=== PATIENT | female | born 1980 | race American Indian/Alaskan Native ===

== ENCOUNTER 2017-03-24 12:25 | Emergency (ER) | payer OTHER ==
[2017-03-24 13:32] LABS: Hematocrit 41.6 % (30.3-42.9); Hemoglobin 13.7 gm/dl (10.1-14.3); Mean Corpuscular Hemoglobin 32 pg (28-32); Mean Corpuscular Volume 96 fl (79-97); Red Blood Count 4.34 M/mm3 (3.65-5.03); White Blood Count 7.4 K/mm3 (4.5-11.0)
[2017-03-24 13:33] LABS: Basophils % (Auto) 0.6 % (0.0-1.8); Eosinophils % (Auto) 0.6 % (0.0-4.3); Mean Corpuscular HGB Conc 33 % (30-34); Platelet Count 257 K/mm3 (140-440); Red Cell Distribution Width 13.2 % (13.2-15.2)
--- NOTE | 2017-03-24 16:55 | Emergency Department Report ---
HPI - General Chief Complaint: Vaginal Bleeding Time Seen by Provider: 03/24/17 16:14 - HPI HPI: This is a 36-year-old -[place] female presents to the emergency department with a complaint of vaginal bleeding going on since January 31. She saw her [employer] TECHNICIAN shortly after that and was started on Provera. However she says that the bleeding is worsened since taking that medication. She did have an ultrasound done at some point that showed an ovarian cyst. She otherwise denies any medical history. She was advised to come to the emergency department if the bleeding becomes heavier, and she is using about 4-5 pads per hour now, so she came in to be seen. She has some mild lower abdominal/pelvic discomfort with it. She denies any dysuria, fever, nausea, vomiting, vaginal discharge. Separately from this, she complains of some mucus within the chest causes her to cough and she always expectorates. She also has a slight rash on the chest that she says came about the same time as the chest congestion. She is taking some ibuprofen for her discomfort without much relief. No recent travel or sick contacts at home. ED Past Medical Hx - Past Medical History Previous Medical History?: No - Surgical History Past Surgical History?: Yes Additional Surgical History: Tonsilectomy - Social History Smoking Status: Never Smoker Substance Use Type: None - Medications Home Medications: Home Medications Medication Instructions Recorded Confirmed Last Taken Type HYDROcodone/APAP 5-325 [[place] 1 each PO Q6HR PRN #12 tablet 03/24/17 Unknown Rx 5/325] ED Review of Systems ROS: Stated complaint: CONTINUAL BLEEDING/ABD/CHEST COLD Other details as noted in HPI Comment: All other systems reviewed and negative Constitutional: denies: chills, fever Eyes: denies: eye pain, eye discharge, vision change ENT: denies: ear pain, throat pain Respiratory: cough. denies: shortness of breath Cardiovascular: denies: chest pain, palpitations Gastrointestinal: abdominal pain. denies: nausea, vomiting Genitourinary: other (vaginal bleeding). denies: urgency, dysuria, discharge Musculoskeletal: denies: back pain, joint swelling, arthralgia Skin: rash. denies: change in hair/nails Neurological: denies: headache, weakness, paresthesias Physical Exam - Physical Exam Vital Signs: Vital Signs 03/24/17 12:47 Temperature 97.7 F Pulse Rate 82 Respiratory 16 Rate Blood Pressure 129/84 O2 Sat by Pulse 100 Oximetry Physical Exam: GENERAL: The patient is well-developed well-nourished. HEENT: Normocephalic. Atraumatic. Extraocular motions are intact. Patient has moist mucous membranes. Pupils equal reactive to light bilaterally. NECK: Supple. Trachea is midline. CHEST/LUNGS: Clear to auscultation. There is no respiratory distress noted. HEART/CARDIOVASCULAR: Regular. There is no tachycardia. There is no gallop rub or murmur. ABDOMEN: Abdomen is soft. Abdominal/pelvic pain is nonreproducible to palpation. Patient has normal bowel sounds. There is no abdominal distention. SKIN: There is no rash. There is no edema. There is no diaphoresis. NEURO: The patient is awake, alert, and oriented. The patient is cooperative. The patient has no focal neurologic deficits. The patient has normal speech. MUSCULOSKELETAL: There is no tenderness or deformity. There is no limitation range of motion. There is no evidence of acute injury. : Deferred ED Course Vital Signs 03/24/17 12:47 Temperature 97.7 F Pulse Rate 82 Respiratory 16 Rate Blood Pressure 129/84 O2 Sat by Pulse 100 Oximetry ED Medical Decision Making - Lab Data Result diagrams: 03/24/17 13:17 03/24/17 18:28 - Radiology Data Radiology results: report reviewed Transvaginal/pelvic ultrasound shows cystic change in both ovaries likely representing maturing follicles. On the left side is is mildly complex. A follow-up pelvic ultrasound in 6-8 weeks is recommended to ensure that this resolves. Nabothian cyst visualized in the cervical canal. No other abnormalities seen. - Medical Decision Making 36-year-old female presents to the ER with 1.5 months of heavy vaginal bleeding. Her labs are mostly unremarkable and do not show any etiology of the patient's symptoms and also the patient does not have any significant anemia or need for transfusion. An ultrasound was done that showed bilateral ovarian cysts with the left-sided cyst being complex and follow-up ultrasound is recommended to make sure that it is not something concerning or malignant. The patient has an upcoming appointment with her [employer] TECHNICIAN and was given a copy of the ultrasound results to take with her. Her vital signs were stable throughout her ED course. - Differential Diagnosis menorrhagia, malignancy, fibroids, Critical Care Time: No Critical care attestation.: If time is entered above; I have spent that time in minutes in the direct care of this critically ill patient, excluding procedure time. ED Disposition Clinical Impression: Vaginal bleeding, Complex cyst of left ovary Menorrhagia Qualifiers: Menorrahagia type: with irregular cycle Qualified Code(s): N92.1 - Excessive and frequent menstruation with irregular cycle Disposition: DISCHARGED TO HOME OR SELFCARE Is pt being admited?: No Condition: Stable Instructions: Dysfunctional Uterine Bleeding (ED), Menorrhagia (ED) Additional Instructions: Please follow-up with your [employer] TECHNICIAN as previously scheduled. Return to the emergency department with any worsening of your symptoms or any acute distress. You've been prescribed a medication that is sedating. Therefore this medication cannot be mixed with alcohol, or taken prior to driving, working, or being responsible for children. Prescriptions: HYDROcodone/APAP 5-325 [[place] 5/325] 1 each PO Q6HR PRN #12 tablet PRN Reason: Pain Referrals: PRIMARY CARE, [Primary Care Provider] - 3-5 Days Time of Disposition: 19:39
[2017-03-24] MEDS ORDERED: NORCO 5/325 PO ONE (17:09)
[2017-03-24 17:19] LABS: Mucus,Urine 1+ /HPF
[2017-03-24 17:40] LABS: Bacteria,Urine 4+ /HPF (Negative); Bilirubin,Urine NEG (Negative); Blood,Urine LG (Negative); Ketones,Urine NEG (Negative); Leukocyte Esterase,Urine TR (Negative); Nitrite,Urine NEG (Negative); RBC,Urine > 182.0 /HPF (0.0-6.0); Urobilinogen,Urine < 2.0 mg/dL (<2.0)
[2017-03-24] MEDS ORDERED: MACROBID PO ONE (18:47)
[2017-03-24 18:58] LABS: Anion Gap 18 mmol/L; BUN/Creatinine Ratio 16.66; Blood Urea Nitrogen 10 mg/dL (7-17); Calcium 8.9 mg/dL (8.4-10.2); Carbon Dioxide 24 mmol/L (22-30); Chloride 103.3 mmol/L (98-107); Glucose 84 mg/dL (65-100); Potassium 3.9 mmol/L (3.6-5.0); Sodium 141 mmol/L (137-145)
[2017-03-24 19:04] VITALS: BP 121/78
--- NOTE | 2017-03-24 19:23 | Ultrasound Report ---
FINAL REPORT PROCEDURE: Transvaginal pelvic ultrasound with Doppler imaging TECHNIQUE: Real-time transvaginal sonography in multiple planes of the pelvis was performed with image documentation. Grayscale, color flow Doppler imaging and velocity spectral waveform analysis of the ovaries was employed (duplex imaging). C[place] 04125 [place] [address]41 HISTORY: Pelvic pain, heavy bleeding COMPARISON: Transabdominal pelvic ultrasound performed earlier today FINDINGS: The report for this exam was generated using images from both the transabdominal and a transvaginal pelvic ultrasound both of which were performed today. The uterus is anteverted measuring 6.3 x 3.1 x 5.6 centimeter. No uterine masses are identified. The endometrial stripe appears normal measuring 8.3 millimeters. Fluid is seen in the endometrial canal or in the cul-de-sac. Small nabothian cyst visualized. Within the right ovary there is a 1.6 centimeter dominant cystic areas suggesting maturing follicle. A few other smaller follicles are present. The right ovary is otherwise unremarkable measuring 3.4 x 1.4 x 2.9 centimeter. Normal arterial flow seen in the right ovary with Doppler imaging. Venous flow was not recorded on this exam. Within the left ovary there is a dominant 2.9 centimeters cyst cyst suggesting maturing follicle. There may be small peripheral septa versus smaller adjacent cyst projecting into larger cyst measuring up to 7.4 millimeters. The left ovary is otherwise unremarkable measuring 3.7 x 4.0 x 2.7 centimeter. Arterial flow is visualized in the left ovary with Doppler imaging. Venous flow was not recorded. IMPRESSION: Cystic change seen in both ovaries likely representing maturing follicles. On the left this is mildly complex as described. Recommend follow-up pelvic ultrasound 6-8 weeks to ensure this resolves. Nabothian cyst visualized in the cervical canal. No other abnormalities are seen.
--- NOTE | 2017-03-24 19:26 | Ultrasound Report ---
FINAL REPORT PROCEDURE: US PELVIC COMPLETE Transabdominal pelvic ultrasound TECHNIQUE: Real-time transabdominal sonography in multiple planes of pelvis was performed with image documentation. This examination was performed without Doppler. Vascular abnormalities, including ovarian torsion, will not be detectable without Doppler evaluation. CPT 07589 HISTORY: Pelvic pain, heavy bleeding COMPARISON: Transvaginal pelvic ultrasound performed earlier today. FINDINGS: This report is generated by using images from both transabdominal and transvaginal pelvic ultrasound both of which were performed today. The uterus is anteverted measuring 6.3 x 3.1 x 5.6 centimeter. No uterine masses are identified. The endometrial stripe appears normal measuring 8.3 millimeters. Fluid is seen in the endometrial canal or in the cul-de-sac. Small nabothian cyst visualized. Within the right ovary there is a 1.6 centimeter dominant cystic areas suggesting maturing follicle. A few other smaller follicles are present. The right ovary is otherwise unremarkable measuring 3.4 x 1.4 x 2.9 centimeter. Normal arterial flow seen in the right ovary with Doppler imaging. Venous flow was not recorded on this exam. Within the left ovary there is a dominant 2.9 centimeters cyst cyst suggesting maturing follicle. There may be small peripheral septa versus smaller adjacent cyst projecting into larger cyst measuring up to 7.4 millimeters. The left ovary is otherwise unremarkable measuring 3.7 x 4.0 x 2.7 centimeter. Arterial flow is visualized in the left ovary with Doppler imaging. Venous flow was not recorded. IMPRESSION: Cystic change seen in both ovaries likely representing maturing follicles. On the left this is mildly complex as described. Recommend follow-up pelvic ultrasound 6-8 weeks to ensure this resolves. Nabothian cyst visualized in the cervical canal. Uterus is otherwise unremarkable. No other abnormalities are seen.
--- NOTE | 2017-03-25 08:29 | XRay Report ---
CHEST 2 VIEWS INDICATION: Cough. COMPARISON: None similar. FINDINGS: PA and lateral chest radiographs demonstrate normal cardiomediastinal silhouette and clear lungs, given the inspiration. Intact bones. CONCLUSION: No acute disease in the chest. Thank you for the opportunity to participate in this patient's care.
== END 2017-03-24 19:45 | disposition home or self-care (01) ==
LOC: ED 12:25
DX: N83.202 Unspecified ovarian cyst, left side (principal); N92.1 Excessive and frequent menstruation with irregular cycle
CPT/HCPCS: 36415; 71020; 76830; 76856; 80048; 81001; 84702; 85025; 86850; 86900; 86901

== ENCOUNTER 2018-02-20 21:40 | Emergency (ER) | payer OTHER | END 2018-02-20 22:10 | disposition left against medical advice (07) | LOC: ED 21:40 | DX: Z02.89 Encounter for other administrative examinations (principal); Z53.21 Procedure and treatment not carried out due to patient leaving prior to being seen by health care provider ==

== ENCOUNTER 2018-06-07 09:40 | Emergency (ER) | payer OTHER ==
[2018-06-07 09:57] VITALS: BP 130/80
--- NOTE | 2018-06-07 10:41 | Emergency Department Report ---
ED General Adult HPI - General Chief complaint: Chest Pain Stated complaint: breast pain Time Seen by Provider: 06/07/18 10:24 Source: patient Mode of arrival: Ambulatory Limitations: No Limitations - History of Present Illness Initial comments: Patient is 32 years old female with no significant past medical history. Patient presented to the ER complaining of pain and rash under her right breast for the last 2 days. Patient denied any fever, nausea or vomiting. Patient stated that this is sweaty all the time. Denied any shortness of breath or cough or fever. - Related Data Previous Rx's Medication Instructions Recorded Last Taken Type HYDROcodone/APAP 5-325 [[place] 1 each PO Q6HR PRN #12 tablet 03/24/17 Unknown Rx 5/325] Allergies Allergy/AdvReac Type Severity Reaction Status Date / Time Sulfa (Sulfonamide Allergy Rash Verified 06/07/18 09:54 Antibiotics) ED Review of Systems ROS: Stated complaint: breast pain Other details as noted in HPI Comment: All other systems reviewed and negative Constitutional: denies: chills, fever ENT: denies: epistaxis Respiratory: denies: cough, orthopnea ED Past Medical Hx - Past Medical History Previous Medical History?: No - Surgical History Additional Surgical History: Tonsilectomy, ovarian cyst removed - Social History Smoking Status: Never Smoker Substance Use Type: None - Medications Home Medications: Home Medications Medication Instructions Recorded Confirmed Last Taken Type HYDROcodone/APAP 5-325 [[place] 1 each PO Q6HR PRN #12 tablet 03/24/17 Unknown Rx 5/325] ED Physical Exam - General Limitations: No Limitations General appearance: alert, in no apparent distress - Head Head exam: Present: atraumatic, normocephalic, normal inspection - Eye Eye exam: Present: normal appearance - ENT ENT exam: Present: normal exam, normal orophraynx, mucous membranes moist - Neck Neck exam: Present: normal inspection, full ROM. Absent: tenderness, meningismus, lymphadenopathy - Respiratory Respiratory exam: Present: normal lung sounds bilaterally, chest wall tenderness. Absent: respiratory distress - Cardiovascular Cardiovascular Exam: Present: regular rate, normal rhythm, normal heart sounds - GI/Abdominal GI/Abdominal exam: Present: soft. Absent: distended, tenderness, rigid - Extremities Exam Extremities exam: Present: normal inspection. Absent: calf tenderness - Neurological Exam Neurological exam: Present: alert, oriented X3, CN II-XII intact, normal gait - Psychiatric Psychiatric exam: Present: normal affect - Skin Skin exam: Present: warm, intact, rash. Absent: cyanosis, diaphoretic, erythema ED Course Vital Signs 06/07/18 09:54 Temperature 98.2 F Pulse Rate 88 Respiratory 16 Rate Blood Pressure 130/80 O2 Sat by Pulse 98 Oximetry ED Medical Decision Making - EKG Data -: EKG Interpreted by Me EKG shows normal: sinus rhythm - EKG Data Interpretation: no acute changes Critical care attestation.: If time is entered above; I have spent that time in minutes in the direct care of this critically ill patient, excluding procedure time. ED Disposition Clinical Impression: Intertriginous candidiasis, Costochondritis, acute Disposition: DC-01 TO HOME OR SELFCARE Is pt being admited?: No Condition: Stable Instructions: Acute Rash (ED), Costochondritis (ED) Referrals: PRIMARY CARE, [Primary Care Provider] - 3-5 Days
== END 2018-06-07 10:51 | disposition home or self-care (01) ==
LOC: ED 09:40
DX: B37.2 Candidiasis of skin and nail (principal); M94.0 Chondrocostal junction syndrome [Tietze]; Z88.2 Allergy status to sulfonamides; Z90.89 Acquired absence of other organs
CPT/HCPCS: 93005; 93010; 99282